=== PATIENT | male | born 1970 | race Caucasian/White ===

== ENCOUNTER 2016-07-04 23:07 | Inpatient (IN) | payer OTHER ==
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
--- NOTE | ~2016-07-04 | HP ---
Unit #: [id number] #: [id number] Patient: FRANK KAMARA [id number] [place] [address] [id number] I MR#: [id number] NAME: FRANK KAMARA ROOM: P210 Age: 46 Sex: M Admission Date: 07/04/2016 : 1970 Attending Physician: Wesley Franco M.D. Admitting Physician: Wesley Franco M.D. Primary Care Physician: Mc Bernardo M.D. HISTORY AND PHYSICAL HISTORY OF PRESENT ILLNESS Frank is a 46 year old admitted to [address] [place] [address] because of his polysubstance abuse which includes alcohol and cocaine. PAST MEDICAL HISTORY 1. History of polysubstance abuse to include cocaine. 2. History of withdrawal seizures, alcohol. PAST SURGICAL HISTORY Left knee. ALLERGIES Penicillin, shellfish. SOCIAL HISTORY Smokes one pack per day. Drinks up to a gallon of vodka on a daily basis. Admits to marijuana and cocaine use on a regular basis. FAMILY HISTORY Medically noncontributory. REVIEW OF SYSTEMS CONSTITUTIONAL: No fever or chills. HEENT: Denies any sore throat, ear pain or runny nose. CARDIOVASCULAR: Denies chest pain, irregular heart rhythm or palpitations. CHEST: Denies shortness of breath or cough. No hemoptysis. GASTROINTESTINAL: Denies nausea, vomiting, diarrhea or chronic constipation. ENDOCRINE: Denies history of increased thirst or urination. No recent significant weight loss or gain. GENITOURINARY: Denies dysuria, frequency, or hematuria. SKIN: Denies any rashes. HEMATOLOGIC: Denies history of increased bleeding or bruising. MUSCULOSKELETAL: Denies any hot, swollen joints. No generalized muscle pain. NEUROLOGIC: Denies problems with vision or speech. No frequent, severe headaches. No numbness, tingling or weakness in any extremities. Denies loss of bladder or bowel control. CURRENT MEDICATIONS 1. Detox protocol 2. Ultram 50 mg q 6 hours p.r.n. Unit #: [id number] #: [id number] Patient: FRANK KAMARA PHYSICAL EXAMINATION GENERAL: Alert, well-nourished, in no apparent distress. VITAL SIGNS: Blood pressure 110/74, heart rate 80, respirations 16, temperature 98.6. WEIGHT: 168 pounds. HEIGHT: 5'11". SKIN: Warm and dry without rash or lesion. HEENT: Normocephalic. TMs not viewed. Oral and nasal passages clear. Conjunctivae clear. Pupils equal, round and reactive to light and accommodation. Extraocular movements intact. NECK: Supple without lymphadenopathy or thyromegaly. HEART: Regular rate and rhythm without murmur. LUNGS: Clear. ABDOMEN: Soft, nontender. : Not done. EXTREMITIES: No evidence of cyanosis, clubbing or edema. Moves all extremities without focal deficit. NEUROLOGICAL: Grossly within normal limits. Cranial Nerves: II: Visual bolden are intact. III, IV AND : Extraocular movements are intact. Pupils are equal, round and reactive to light. V: Facial sensation is grossly normal. VII: Facial movements and expression are normal. VIII: Auditory acuity grossly intact. IX, X: Uvula is midline. Phonation is normal. XI: Patient shrugs shoulders and turns head normally. XII: Tongue protrudes in the midline. Sensory and Motor Function: Sensory and motor sensation is grossly normal. Motor: moves all extremities well. Coordination: Gait is normal. Deep Tendon Reflexes: Intact. IMPRESSION Psychiatric admission RECOMMENDATIONS PSYCHIATRIC: Per psychiatrist. MEDICAL: I see no contraindications to participating in facility's activities. MEDICAL PROGNOSIS Good. MEDICAL CONDITION Stable. Dictated by... Fátima Mcduffie P.A.-C. for Lexy Nguyen/annika TD: 07/05/2016 21:49 JOB #: [id number] Unit #: [id number] #: [id number] Patient: FRANK KAMARA HISTORY AND PHYSICAL Page 1 of 1 X Fátima Mcduffie HISTORY AND PHYSICAL
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
[~2016-07-04 23:07] MED LIST: TYLOX 5/500 CAP1 CAP PO
[2016-07-05 09:58] LABS: THYROID STIMULATING HORMONE 2.84 uIU/ml (0.34-5.60)
[2016-07-05 10:05] LABS: FREE THYROXIN (T4) 0.9 ng/dL (0.58-1.64)
== END 2016-07-12 12:02 | disposition home or self-care (01) | DRG 897 ==
LOC: P2S 23:07
PROVIDERS: Psychiatry & Neurology Psychiatry
PROC: HZ2ZZZZ Detoxification Services for Substance Abuse Treatment (ICD-10-PCS; principal; 2016-07-04)
DX: F10.20 Alcohol dependence, uncomplicated (principal); R45.851 Suicidal ideations; F32.9 Major depressive disorder, single episode, unspecified; F17.200 Nicotine dependence, unspecified, uncomplicated
CPT/HCPCS: 84439; 84443; 86592

== ENCOUNTER 2016-12-12 05:00 | Inpatient (IN) | payer OTHER ==
[~2016-12-12] VITALS: Ht 180.3 cm; Wt 74.8 kg
--- NOTE | ~2016-12-12 | DS ---
Unit #: [id number] #: [id number] Patient: FR[facility] TATE [id number] [facility] [place] [address] [id number] I MR#: [id number] NAME: FRANK TATE ROOM: 74 Age: 46 Sex: M Admission Date: 12/12/2016 : 1970 Discharge Date: 12/19/2016 Attending Physician: Isamar Buck M.D. Primary Care Physician: Generic Doctor Not In System DISCHARGE SUMMARY IDENTIFICATION DATA Mr. Tate is a 46-year-old single white male who is a resident of [place], [place], and was self-referred to the hospital on voluntary basis. DISCHARGE DIAGNOSES PSYCHIATRIC: Schizoaffective disorder, bipolar type, most recent episode, depressed, recurrent, moderate, without psychotic features. Alcohol dependence, moderate, in acute withdrawals. Cocaine abuse, moderate. Methamphetamine abuse, moderate. MEDICAL: Hepatitis C. STRESSORS: Mild psychosocial stressors. HISTORY OF PRESENT ILLNESS Same as in initial psychiatric evaluation. PAST PSYCHIATRIC HISTORY Same as in initial psychiatric evaluation. PAST MEDICAL HISTORY Same as in initial psychiatric evaluation. HOSPITAL COURSE The patient was admitted to the adult psychiatric unit at [facility] and was oriented to the hospital environment. Routine p.r.n. medications were initiated, and he was started back on his home medications and was closely monitored. He was taking the medications regularly and was tolerating them fairly well and was able to show a decent and therapeutic response and was willing to continue treatment on outpatient basis. He is denying any suicidal ideations, intent, or plan. As such it was decided that she will be discharged home. We will continue treatment on outpatient basis. DISCHARGE MEDICATIONS 1. Lamictal 150 mg twice a day for bipolar. 2. Zyprexa 20 mg at bedtime for bipolar. 3. Effexor XR 75 mg in the evening for depression. CONDITION AT DISCHARGE Stable. PROGNOSIS Unit #: [id number] #: [id number] Patient: FRANK TATE. Dictated by... Isamar Buck M.D. IAA/bzg TD: 12/22/2016 08:44 JOB #: [id number] DISCHARGE SUMMARY Page 1 of 1 X Isamar Buck MD DISCHARGE SUMMARY
--- NOTE | ~2016-12-12 | PN ---
Unit #: [id number] #: [id number] Patient: FRANK TATE [id number] [facility] [address] [place] [address] [id number] I MR#: [id number] NAME: FRANK TATE ROOM: 74 Age: 46 Sex: M Admission Date: 12/12/2016 : 1970 Attending Physician: Isamar Buck M.D. Admitting Physician: Isamar Buck M.D. Primary Care Physician: Soumya Doctor Not In System [facility] PROGRESS NOTES DATE 12/16/2016 DISCUSSION Mr. Tate is a 46-year-old white male who was seen today and chart was reviewed and case was discussed with the staff. He has been anxious, withdrawn and rather seclusive to himself. Meanwhile, he has been cooperative with treatment recommendations and has been taking medications and tolerating them fairly well with no reported side effects. MENTAL STATUS EXAMINATION Middle-aged white male who was casually dressed with fair personal hygiene and appears to be in no acute distress or discomfort. He was awake and alert with intact orientation. His mood was anxious with congruent affect. He denies any suicidal or homicidal ideation and also denies any auditory or visual hallucinations. His insight and judgement remains slightly impaired. TREATMENT PLAN 1. Will continue him on his current medications and treatment protocol. Will monitor his response to the medications and make further adjustments as needed. 2. Will continue to follow up. Dictated by... Lexy Hackett/madhavi TD: 12/16/2016 18:45 JOB #: [id number] Unit #: [id number] #: [id number] Patient: FRANK TATE PROGRESS NOTES Page 1 of 1 X Isamar Buck MD PROGRESS NOTE
--- NOTE | ~2016-12-12 | PN ---
Unit #: [id number] #: [id number] Patient: FRANK TATE [id number] [facility] [address] [place] [address] [id number] MR#: [id number] NAME: FRANK TATE ROOM: [facility] Age: 46 Sex: M Admission Date: 12/12/2016 : 1970 Attending Physician: Isamar Buck M.D. Admitting Physician: Isamar Buck M.D. Primary Care Physician: Soumya Doctor Not In System [facility] PROGRESS NOTES DATE OF SERVICE 12/14/2016 DISCUSSION Mr. Tate is a 46-year-old white male with mood disorder and substance abuse who was seen today. Chart was reviewed and case was discussed with staff. He was seen to be anxious, withdrawn, and seclusive to himself. Staff reports the patient has not been functioning very well. On approach, the patient was hardly able to communicate, but was mumbling, stating that he feels disoriented. However, he has not shown any agitation or aggression or aggression, but does appear to be exhibiting some significant depressive symptoms with possible alteration in his mental status though he would need close monitoring. MENTAL STATUS EXAMINATION Middle-aged white male who is casually dressed with fair personal hygiene, appears to be in no acute distress or discomfort. The patient was awake and alert with impaired attention and concentration. His mood is anxious with a congruent affect. His speech is slow and restricted in content. His thought processes were disorganized with some looseness of associations and thought-blocking. His insight and judgment remain significantly impaired. TREATMENT PLAN 1. We will continue him on his current medications and treatment protocol. We will monitor his response to the medications and make further adjustments as needed. 2. We will continue to follow up. Dictated by... Isamar Buck M.D. IAA/bzg TD: 12/14/2016 14:53 JOB #: [id number] Unit #: [id number] #: [id number] Patient: FRANK TATE [facility] NOTES Page 1 of 1 X Isamar Buck MD PROGRESS NOTE
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
--- NOTE | ~2016-12-12 | HP ---
Unit #: [id number] #: [id number] Patient: FRANK KAMARA [id number] [place] [address] [id number] MR#: [id number] NAME: FRANK KAMARA ROOM: P177 Age: 46 Sex: M Admission Date: 12/12/2016 : 1970 Attending Physician: Isamar Buck M.D. Admitting Physician: Isamar Buck M.D. Primary Care Physician: Generic Doctor Not In System HISTORY AND PHYSICAL HISTORY OF PRESENT ILLNESS Patient is a 46-year-old male admitted to [facility] on 12/11/2016 for alcohol and suicidal ideations. PAST MEDICAL HISTORY 1. Polysubstance abuse including alcohol. 2. Withdrawal seizures. 3. Hepatitis C. 4. Joint pain. PAST SURGICAL HISTORY Left knee. SOCIAL HISTORY He is unemployed and disabled. He lives with a friend. He smokes two packs of cigarettes daily and abuses alcohol. FAMILY MEDICAL HISTORY Noncontributory. ALLERGIES Penicillin, hydrochlorothiazide and Geodon. CURRENT MEDICATIONS Include Zyprexa, Lamictal, Effexor. REVIEW OF SYSTEMS CONSTITUTIONAL: No fever or chills. HEENT: Denies any sore throat, ear pain or runny nose. CARDIOVASCULAR: Denies chest pain, irregular heart rhythm or palpitations. CHEST: Denies shortness of breath or cough. No hemoptysis. GASTROINTESTINAL: Denies nausea, vomiting, diarrhea or chronic constipation. ENDOCRINE: Denies history of increased thirst or urination. No recent significant weight loss or gain. GENITOURINARY: Denies dysuria, frequency, or hematuria. SKIN: Denies any rashes. HEMATOLOGIC: Denies history of increased bleeding or bruising. MUSCULOSKELETAL: Denies any hot, swollen joints. No generalized muscle pain. NEUROLOGIC: Denies problems with vision or speech. No frequent, severe headaches. No numbness, tingling or weakness in any extremities. Denies loss of bladder or bowel control. Unit #: [id number] #: [id number] Patient: FRANK KAMARA PHYSICAL EXAM GENERAL: He is awake, alert and oriented in no acute distress. VITAL SIGNS: Temperature 102, respiration 36, blood pressure 120/78, heart rate 102. SKIN: Warm and dry without rash or lesion. HEENT: Normocephalic. TMs not viewed. Oral and nasal passages clear. Conjunctivae clear. PERRLA. EOMs intact. NECK: Supple without lymphadenopathy or thyromegaly. HEART: Regular rate and rhythm without murmur. LUNGS: Clear. ABDOMEN: Soft, nontender. : Not done. EXTREMITIES: No evidence of cyanosis, clubbing or edema. Moves all without focal deficit. NEUROLOGICAL: Grossly within normal limits. Cranial Nerves: II: Visual bolden are intact. III, IV AND : Extraocular movements are intact. Pupils are equal, round and reactive to light. V: Facial sensation is grossly normal. VII: Facial movements and expression are normal. VIII: Auditory acuity grossly intact. IX, X: Uvula is midline. Phonation is normal. XI: Patient shrugs shoulders and turns head normally. XII: Tongue protrudes in the midline. Sensory and Motor Function: Sensory and motor sensation is grossly normal. Motor: moves all extremities well. IMPRESSION 1. Psychiatric admission. 2. Alcohol abuse. 3. Withdrawal seizures. 4. Hepatitis C. 5. Joint pain. RECOMMENDATIONS Psychiatric per psychiatrist. MEDICAL: No contraindication to participate in facility activities. MEDICAL PROGNOSIS Good. MEDICAL CONDITION Stable. Dictated by... Adan Coleman/annika TD: 12/13/2016 02:24 JOB #: [id number] Unit #: [id number] #: [id number] Patient: FRANK KAMARA HISTORY AND PHYSICAL Page 1 of 1 X KAYA ADAMS APRN HISTORY AND PHYSICAL
--- NOTE | ~2016-12-12 | PN ---
Unit #: [id number] #: [id number] Patient: FRANK TATE [id number] [facility] [address] [place] [address] [id number] I MR#: [id number] NAME: FRANK TATE ROOM: [facility] Age: 46 Sex: M Admission Date: 12/12/2016 : 1970 Attending Physician: Isamar Buck M.D. Admitting Physician: Isamar Buck M.D. Primary Care Physician: Soumya Doctor Not In System [facility] PROGRESS NOTES DATE December 18, 2016 DISCUSSION Mr. Tate is a 46-year-old white male, who was seen today and chart was reviewed and the case was discussed with the staff. He has been anxious, withdrawn, and rather seclusive to himself. Meanwhile, he has been cooperative with the treatment recommendations and he has been taking the medications and tolerating them fairly well with no reported side effects. MENTAL STATUS EXAMINATION Middle-aged white male, who was casually dressed with fair personal hygiene and appears to be in no acute distress or discomfort. He was awake and alert on interaction with intact orientation. His mood is anxious with a congruent affect. His speech is slow and goal-directed. He denies any suicidal or homicidal ideations. His insight and judgment remain slightly impaired. TREATMENT PLAN 1. We will continue him on his current medications and treatment protocol, and will monitor his response to the medications, and make further adjustments as needed. 2. We will continue to followup. Dictated by... Lexy Hackett/sherrie TD: 12/19/2016 11:03 JOB #: [id number] Unit #: [id number] #: [id number] Patient: FRANK TATE PROGRESS NOTES Page 1 of 1 X Isamar Buck MD PROGRESS NOTE
--- NOTE | ~2016-12-12 | PN ---
Unit #: [id number] #: [id number] Patient: FRANK TATE [id number] [facility] [address] [place] [address] [id number] MR#: [id number] NAME: FRANK TATE ROOM: P174 Age: 46 Sex: M Admission Date: 12/12/2016 : 1970 Attending Physician: Isamar Buck M.D. Admitting Physician: Isamar Buck M.D. Primary Care Physician: Soumya Doctor Not In System [facility] PROGRESS NOTES DATE OF SERVICE 12/15/2016 DISCUSSION Mr. Tate is a 46-year-old white male who was seen today. Chart was reviewed and case was discussed with the staff. He has been doing somewhat better than yesterday as he had a rough day yesterday with increased confusional state and was picked up by the camera room going towards the female patient's (1) __ he was standing on top of a female lying in their bed and staring at them, standing on the head-side for 15 seconds before camera room was able to make intervention. Meanwhile, he appears to be more alert and able to comprehend and carry on meaningful conversation as of this morning. However, he still has been maintained on a camera monitor to her room. MENTAL STATUS EXAMINATION Middle-aged white male who is casually dressed with fair personal hygiene, appears to be in no acute distress or discomfort. He was awake and alert with impaired attention and concentration. His mood is anxious with congruent affect. His speech is slow and restricted in content. His insight and judgment remain slightly impaired. TREATMENT PLAN 1. We will continue him on his current medications and treatment protocol. We will monitor his response to the medications and make further adjustments as needed. 2. We will continue to follow up. Dictated by... Isamar Buck M.D. IAA/rudyg TD: 12/15/2016 11:08 JOB #: [id number] Unit #: [id number] #: [id number] Patient: FRANK TATE PROGRESS NOTES Page 1 of 1 X Isamar Buck MD PROGRESS NOTE
--- NOTE | ~2016-12-12 | PN ---
Unit #: [id number] #: [id number] Patient: FRANK KAMARA [id number] [facility] [address] [place] [address] [id number] MR#: [id number] NAME: FRANK KAMARA ROOM: 74 Age: 46 Sex: M Admission Date: 12/12/2016 : 1970 Attending Physician: Isamar Buck M.D. Admitting Physician: Isamar Buck M.D. Primary Care Physician: Generic Doctor Not In System [facility] PROGRESS NOTES DATE OF SERVICE: 12/17/2016 SUBJECTIVE Mr. Alejo is a 46-year-old white male, who was seen today and chart was reviewed and case was discussed with the staff. He has been anxious, withdrawn, seclusive to himself. Reports still not feeling good. He is still having some anxiety . Meanwhile, he has been taking medications and tolerating them fairly well. MENTAL STATUS EXAMINATION Middle-aged white male, who was casually dressed with fair personal hygiene, appears to be in slight distress and discomfort. He was awake and alert on interaction with intact orientation. His mood was anxious with a congruent affect. He denies any suicidal or homicidal ideations and his insight and judgment remain slightly impaired. TREATMENT PLAN 1. We will continue him on his current treatment protocol. We will monitor his response and make further adjustments as needed. 2. We will continue to follow up. Dictated by... Lexy Hackett/lorraine TD: 12/20/2016 00:21 JOB #: [id number] [facility] PROGRESS NOTES Page 1 of 1 X Isamar Buck MD X PROGRESS NOTE
--- NOTE | ~2016-12-12 | PN ---
Unit #: [id number] #: [id number] Patient: FRANK TATE [id number] [facility] [address] [place] [address] [id number] MR#: [id number] NAME: FRANK TATE ROOM: [facility] Age: 46 Sex: M Admission Date: 12/12/2016 : 1970 Attending Physician: Isamar Buck M.D. Admitting Physician: Isamar Buck M.D. Primary Care Physician: Soumya Doctor Not In System [facility] PROGRESS NOTES DATE 12/13/2016 DISCUSSION Mr. Tate is a 46-year-old white male with mood disorder who was seen today and chart was reviewed and case was discussed with the staff. He remains anxious, withdrawn, depressed and rather seclusive to himself. Meanwhile, he has been cooperative with treatment recommendations and has been taking medications and tolerating them fairly well. MENTAL STATUS EXAMINATION Middle-aged white male who was casually dressed with fair personal hygiene and appears to be in no acute distress or discomfort. He was awake and alert on interaction with intact orientation. His mood was anxious and depressed with congruent affect. His speech is slow and goal-directed. He denies any suicidal or homicidal ideations and also denies any auditory or visual hallucinations. His insight and judgement remains slightly impaired. TREATMENT PLAN Will continue him on his current medications and treatment protocol. Will monitor response and make further adjustments as needed. Dictated by... Lexy Hackett/madhavi TD: 12/13/2016 20:30 JOB #: [id number] Unit #: [id number] #: [id number] Patient: FRANK TATE PROGRESS NOTES Page 1 of 1 X Isamar Buck MD X PROGRESS NOTE
[2016-12-13 16:45] LABS: URINE APPEARANCE CLOUDY; URINE BILIRUBIN NEG (NEG); URINE BLOOD NEG (NEG); URINE COLOR DK YELLOW; URINE GLUCOSE NEG (NEG); URINE KETONE NEG (NEG); URINE LEUKOCYTE ESTERASE NEG (NEG); URINE NITRATE NEG (NEG); URINE PROTEIN NEG (NEG); URINE UROBILINOGEN 0.2 MG/DL (NEG)
== END 2016-12-19 11:45 | DRG 885 ==
LOC: P1E 07:33
PROVIDERS: Psychiatry & Neurology Psychiatry
DX: F25.9 Schizoaffective disorder, unspecified (principal); R45.851 Suicidal ideations; F10.239 Alcohol dependence with withdrawal, unspecified; F17.210 Nicotine dependence, cigarettes, uncomplicated; Z88.0 Allergy status to penicillin; Z88.8 Allergy status to other drugs, medicaments and biological substances; F14.10 Cocaine abuse, uncomplicated; F15.10 Other stimulant abuse, uncomplicated
CPT/HCPCS: 81003; 86592